=== PATIENT | male | born 1975 | race Two or more races ===

== ENCOUNTER 2023-10-20 15:42 | Emergency (ER) | payer OTHER ==
[~2023-10-20] VITALS: Ht 167.6 cm; Wt 91.8 kg
[2023-10-20 15:56] VITALS: BP 121/85; PULSE 69; RESP 17; TEMP 99; O2SAT 94
[2023-10-20] MEDS ORDERED: IBUP-862 PO (16:29)
== END 2023-10-20 16:38 | disposition home or self-care (01) ==
LOC: ER 15:43
DX: S33.5XXA Sprain of ligaments of lumbar spine, initial encounter (principal); X50.0XXA Overexertion from strenuous movement or load, initial encounter; Y93.89 Activity, other specified; Y92.89 Other specified places as the place of occurrence of the external cause; Y99.8 Other external cause status
CPT/HCPCS: 99282